=== PATIENT | female | born 1930 | race African-American/Black ===

== ENCOUNTER 2017-05-30 04:14 | Emergency (ER) | payer MEDICARE ==
[~2017-05-30] VITALS: Ht 165.1 cm; Wt 52.6 kg
[~2017-05-30 04:14] MED LIST: NITROFURANTOIN100 M2 ORAL; PRAVACHOL20 MG ORAL; XANAX0.25 MG ORAL
[2017-05-30 04:20] VITALS: BP 174/68
--- NOTE | 2017-05-30 04:23 | Emergency Room Report ---
History of Present Illness General Chief Complaint: Head Injury Source: Patient Present Illness HPI Is an 86-year-old female with a history of chronic back pain. She is unsteady her feet and use the knee a walker. She presents with chief complaint of head injury. She got up to use the restroom and did not use any assistive device. She fell and hit her forehead. No loss of consciousness. Also with pain to the left scalp area. Pain is 8/10. No nausea no vomiting. No neck pain. Also had abrasion to her hands.currently not on any anticoagulations. Allergies: Coded Allergies: SULFA (SULFONAMIDE ANTIBIOTICS) (Unverified Allergy, Unknown, 05/30/17) Patient History Past Medical History: see triage record, old chart reviewed Past Surgical History: other Pertinent Family History: none Social History: Denies: smoking Now: No Immunizations: other Reviewed Nursing Documentation: PMH: Agreed, PSxH: Agreed Nursing Documentation-PMH Hx Cardiac Problems: Yes Hx Cancer: Yes - leukemia Review of Systems Eye: Denies: eye pain, blurred vision ENT: Denies: ear pain, nose congestion, throat swelling Respiratory: Denies: cough, shortness of breath Cardiovascular: Denies: chest pain, palpitations Gastrointestinal: Denies: abdominal pain, diarrhea, nausea, vomiting Musculoskeletal: Denies: back pain, joint pain Skin: Denies: rash Neurological: Denies: headache, numbness Endocrine: Denies: increased thirst, increased urine Hematologic/Lymphatic: Denies: easy bruising All Other Systems: negative except mentioned in HPI Physical Exam Vital Signs Date Time Temp Pulse Resp B/P (MAP) Pulse Ox O2 Delivery O2 Flow Rate FiO2 05/30/17 04:04 98.2 75 18 164/95 99 Room Air vitals with high blood pressure Sp02 EP Interpretation: reviewed, normal General Appearance: well appearing, no apparent distress, alert Head: normocephalic, other - 3 cm laceration with hematoma to the right forehead. 1 cm laceration to the left parietal area. No foreign body. Eyes: bilateral eye PERRL, bilateral eye EOMI ENT: hearing grossly normal, normal pharynx Neck: full range of motion, supple, no meningismus Respiratory: chest non-tender, lungs clear, normal breath sounds Cardiovascular #1: regular rate, rhythm, no murmur Gastrointestinal: normal bowel sounds, non tender, no mass, no organomegaly, no bruit, non-distended Musculoskeletal: back normal, gait/station normal, normal range of motion Psychiatric: mood/affect normal Skin: warm/dry Procedures Laceration/Wound Repair Laceration/Wound Repair : Consent: Verbal Wound Location: head, face Wound's Depth, Shape: irregular, stellate, contused tissue Wound Length (cm): 10 Wound Explored: clean Irrigated w/ Saline (ccs): 1000 Betadine Prep?: No Anesthesia: 1% Lidocaine Volume Anesthetic (ccs): 10 Wound Debrided: minimal Wound Repaired With: sutures Suture Size/Type: 5:0, other - chromic Number of Sutures: 11 Sterile Dressing Applied?: Yes Patient Tolerated: Well Complications: None Progress Left parietal area: Laceration to is 3 cm. Local anesthetic with 1% lidocaine without epinephrine. I remove some of the surrounding hair. I put in 4 interrupted 5-0 chromic suture. Patient tolerated procedure without a problem. Right forehead: She has an irregular laceration of 7 cm. There is contusion tissue and hematoma. Proximal section of the skin it is avulsed. Revised the wound. I put in 7 interrupted 5-0 chromic sutures. Patient tolerated procedure without a problem. Pressure dressing placed. Medical Decision Making Diagnostic Impression: Primary Impression: Acute head injury Qualified Codes: S09.90XA - Unspecified injury of head, initial encounter Additional Impressions: Scalp laceration Qualified Codes: S01.01XA - Laceration without foreign body of scalp, initial encounter Forehead laceration Qualified Codes: S01.81XA - Laceration without foreign body of other part of head, initial encounter ER Course Patient with head injury and laceration. No neck pain. No intracranial fracture or bleed. Patient is not on any medication. We'll discharge home. CT/MRI/US Diagnostic Results CT/MRI/US Diagnostic Results : Imaging Test Ordered: CT head Impression Read by radiologist. No intracranial hemorrhage or skull fracture. Right frontal and left parietal scalp hematomas. Last Vital Signs Date Time Temp Pulse Resp B/P (MAP) Pulse Ox O2 Delivery O2 Flow Rate FiO2 05/30/17 04:04 98.2 75 18 164/95 99 Room Air Status: improved Disposition: HOME, SELF-CARE Condition: Improved Scripts Acetaminophen With Codeine (T#3) (TYLENOL #3 TAB*) Y Tab 1 TAB ORAL Q8H Y for For Pain, #20 TAB Prov: ALEXANDER PATE M.D. 05/30/17 Patient Instructions: HEAD INJURY, No Wake-Up (Adult) Additional Instructions: Followup with your Dr. in 2-3 days for recheck. Return if symptom worsen. Sutures will fall off. ALEXANDER PATE M.D. May 30, 2017 04:23
[2017-05-30] MEDS ORDERED: Tylenol #3 tab (300mg/30mg) ORAL ONE (04:30)
[2017-05-30] MEDS ORDERED: ACETAMINOPHEN-1 EAC1 ORAL (05:58)
[2017-05-30 06:05] VITALS: BP 174/68
--- NOTE | 2017-05-30 09:25 | Diagnostic Imaging Report ---
Indications: Pain, headache, status post fall Technique: Spiral acquisitions obtained through the brain. Angled axial and coronal 5 x 5 mm slices were reconstructed. Total dose length product 1400 mGycm. CTDI vol(s) 70 mGy. Dose reduction achieved using automated exposure control Comparison: None Findings: There is a left high parietal scalp soft tissue hematoma. There is a right frontal extra cranial scalp soft tissue hematoma. No underlying calvarial injury. No acute intracranial bleed or edema, mass effect, or midline shift. There is age-related enlargement of ventricles and extra-axial CSF spaces. There is mild periventricular deep white matter chronic ischemic change. Visualized orbits and sinuses are unremarkable. The mastoids are clear. Impression: Evidence of multifocal extracranial scalp soft tissue injury Negative for acute intracranial bleed or mass effect Chronic and age-related changes, as described This agrees with the preliminary interpretation provided overnight by [facility]. The CT scanner at [facility] is accredited by the [employer] and the scans are performed using protocols designed to limit radiation exposure to as low as reasonably achievable to attain images of sufficient resolution adequate for diagnostic evaluation.
== END 2017-05-30 06:07 | disposition home or self-care (01) ==
LOC: EDBD 04:14 → EMR 05:58
DX: S01.81XA Laceration without foreign body of other part of head, initial encounter (principal); S01.01XA Laceration without foreign body of scalp, initial encounter; W18.12XA Fall from or off toilet with subsequent striking against object, initial encounter; Y92.012 Bathroom of single-family (private) house as the place of occurrence of the external cause; R51 Headache; G89.29 Other chronic pain; M54.9 Dorsalgia, unspecified; Z88.2 Allergy status to sulfonamides; Z85.6 Personal history of leukemia
CPT/HCPCS: 70450; 99284